=== PATIENT | female | born 1945 ===

== ENCOUNTER 2016-09-28 17:59 | Inpatient (IN) | payer MEDICARE ==
[~2016-09-28] VITALS: Ht 157.5 cm; Wt 50.1 kg
[2016-09-28 19:01] LABS: BASOPHILS 0.3 % (0-2); EOSINOPHILS 1.5 % (0-7); HEMATOCRIT 42.6 % (36.0-48.0); HEMOGLOBIN 14.2 g/dL (12-16); IMMATURE GRANULOCYTES 0.1 % (0-5); LYMPHOCYTES 31.8 % (15-50); MCH 31.7 pg (26.0-34.0); MCHC 33.3 g/dL (31.0-37.0); MCV 95.1 fL (80.0-100.0); MONOCYTES 11.4 % (2-11); NEUTROPHILS 54.9 % (40-80); PLATELET COUNT 287 10x3/uL (130-400); RBC 4.48 10x6/uL (4.00-5.40); RDW 13.1 % (11.5-14.5); WBC 7.8 10x3/uL (4.8-10.8)
[2016-09-28 19:14] LABS: ALBUMIN 3.7 g/dL (3.4-5.0); ALKALINE PHOSPHATASE 70 U/L (46-116); ALT (SGPT) 24 U/L (10-68); BILIRUBIN - TOTAL 0.27 mg/dL (0.2-1.3); CALC OSMOLALITY 279 mosm/kg (275-300); CALCIUM 9.7 mg/dL (8.5-10.1); CARBON DIOXIDE 25.7 mmol/L (21.0-32.0); CHLORIDE - SERUM 104 mmol/L (98-107); CREATININE - SERUM 0.6 mg/dL (0.6-1.3); GLUCOSE 114 mg/dL (74-106); POTASSIUM - SERUM 4.7 mmol/L (3.5-5.1); PROTEIN - SERUM 7.4 g/dL (6.4-8.2); SODIUM 138 mmol/L (136-145); UREA NITROGEN 20 mg/dL (7-18); eGFR NON AFRICAN AMERICAN > 90 mL/min (90-120)
[2016-09-28 19:21] LABS: APPEARANCE CLEAR (CLEAR); BILIRUBIN NEGATIVE (NEGATIVE); COLOR STRAW (YELLOW); GLUCOSE NEGATIVE (NEGATIVE); KETONE NEGATIVE (NEGATIVE); LEUKOCYTE ESTERASE NEGATIVE (NEGATIVE); NITRITE NEGATIVE (NEGATIVE); PROTEIN NEGATIVE (NEGATIVE); RED CELLS - URINE OCC /hpf (0-5); SPECIFIC GRAVITY 1.015 (1.005-1.020); UROBILINOGEN NORMAL (NORMAL); WHITE CELLS - URINE 0-5 /hpf (0-5)
[2016-09-28 19:22] LABS: BACTERIA FEW /hpf (NONE SEEN); EPITHELIAL CELLS OCC /hpf (0-5)
[2016-09-28 19:25] LABS: UDS - AMPHET NEGATIVE QUAL (NEGATIVE); UDS - BARB NEGATIVE QUAL (NEGATIVE); UDS - BENZO NEGATIVE QUAL (NEGATIVE); UDS - COCAINE NEGATIVE QUAL (NEGATIVE); UDS - METH NEGATIVE QUAL (NEGATIVE); UDS - OPIATE NEGATIVE QUAL (NEGATIVE); UDS - PCP NEGATIVE QUAL (NEGATIVE); UDS - THC NEGATIVE QUAL (NEGATIVE)
[2016-09-28] MEDS ORDERED: PLAVIX75 MG PO (21:41)
[2016-09-28 22:13] LABS: CHOL - HDL RATIO 3.3 ratio (2.3-4.1); LDL-HDL RATIO 1.9 ratio (1.5-3.5); THYROID STIMULATING HORMONE 3.77 uIU/mL (0.36-3.74)
[2016-09-28 22:48] VITALS: BP 154/69
--- NOTE | 2016-09-29 01:03 | NUR ---
RECIEVED PATIENT AT 2100 FROM E.D. ARRIVED WITH FAMILY, CODE STATUS IS DNR PER FAMILY, ALERT AND ORIENTED TO SELF AND BEING IN A HOSPITAL, PATIENT WAS TOLD SHE WAS HERE TO GET MEDICATIOS, CONSENTS SIGNED BY DAUGHTER, PHYSICIAN AWARE, MEDICATIONS ENTERED. WILL CONTINUE TO MONITOR.
[2016-09-29 03:03] VITALS: BP 142/68; BMI 19.2
--- NOTE | 2016-09-29 07:30 | NUR ---
B) PATIENT AWAKENED IN A FOUL MOOD, SHE IS CURSING. WHEN STAFF TOLD HER TO FOLLOW THEM TO THE DINING ROOM SHE SAID "REMY MANN, MOTHER FU--ER!" PATIENT IS RUDE AND SHE IS SAYING "I'M NOT STAYING HERE, I DON'T KNOW WHY I AM HERE" PATIENT AMBULATES INDEPENDENTLY. I) PROVIDE PRESCRIBED MEDS. R) PATIENT IS COMPLIANT WITH MEDS, SHE IS PARTICIPATING IN SOME GROUPS. P) CONT POC.
[2016-09-29 12:39] LABS: APPEARANCE HAZY (CLEAR); BILIRUBIN NEGATIVE (NEGATIVE); COLOR YELLOW (YELLOW); GLUCOSE NEGATIVE (NEGATIVE); KETONE NEGATIVE (NEGATIVE); LEUKOCYTE ESTERASE 2+ (NEGATIVE); NITRITE NEGATIVE (NEGATIVE); PROTEIN NEGATIVE (NEGATIVE); UROBILINOGEN NORMAL (NORMAL)
[2016-09-29 12:40] LABS: BACTERIA FEW /hpf (NONE SEEN); EPITHELIAL CELLS 0-5 /hpf (0-5); MUCUS <1+ /lpf (NONE SEEN); RED CELLS - URINE RARE /hpf (0-5)
[2016-09-29 15:09] VITALS: BP 152/61
[2016-09-29 19:00] VITALS: BP 117/73
--- NOTE | 2016-09-29 20:42 | NUR ---
ORIENTED TO PERSON, PLACE, AND TIME. PT DENIES SI AND STATED "THEY LIED TO ME". EDUCATED PT ON WHAT WAS REPORTED AND SHE SAID, "AND SO WHAT". PT THINKS THAT SHE HAS BEEN IN THE HOSPITAL FOR 5 DAYS WHEN REORIENTED PT CONTINUED TO BE AGITATED. PT DENIES DEPRESSION BUT DID SAY THAT SHE WAS ALWAYS ANXIOUS AND WORRIED. FALL PRECAUTIONS MAINTAINED. WILL CONTINUE TO MONITOR AND CONTINUE WITH PLAN OF CARE.
[2016-09-30 06:11] LABS: VITAMIN D 25 HYDROXY 22.1 ng/mL (30.0-100.0)
[2016-09-30 07:20] LABS: FOLATE (FOLIC ACID) - SERUM 9.3 ng/mL (>3.0); RAPID PLASMA REAGIN Non Reactive (Non Reactive)
[2016-09-30 10:42] VITALS: BP 124/94
--- NOTE | 2016-09-30 13:33 | NUR ---
B) PATIENT IS AWAKE AND ALERT, SHE IS ORIENTED TO PERSON, SHE IS INTERACTIVE WITH STAFF AND PEERS AND SOCIALIZING. SHE AMBULATES INDEPENDENTLY. I) PROVIDE PRESCRIBED MEDS. R) PATIENT IS COMPLIANT WITH MEDS. P) CONTINUE POC.
[2016-09-30 19:30] VITALS: BP 120/49
--- NOTE | 2016-10-01 04:07 | NUR ---
B) RECEIVED IN DAYROOM SITTING IN CHAIR. AWAKE, ALERT AND ORIENTED TO PERSON. SOCIALIZES WITH STAFF AND PEERS. I) ADMINISTER PRESCRIBED MEDICATIONS. VSS. R) SHE IS COMPLIANT WITH TAKING MEDICATIONS. REORIENT AND REDIRECT NEEDED. P) WILL CONTINUE CURRENT PLAN OF CARE AND MONITOR FOR CHANGES.
[2016-10-01 07:00] VITALS: BP 157/85
[2016-10-01 19:30] VITALS: BP 107/55
--- NOTE | 2016-10-01 20:29 | NUR ---
PT RECEIVED IN CHAIR BY NURSE STATION. PT ALERT AND ORIENTED TO PERSON AND PLACE. PT DENIES PAIN. NO HALLUCIANTIONS OR DELUSIONS NOTED OR REPORTED. PT DENIES SI. CONTRACTS FOR SAFETY. PT IS COOPERATIVE WITH STAFF AND IS COMPLIANT WITH MEDS AND CARE. PT IS REDIRECTED NEEDED. SAFETY MEASURES ARE IMPLEMENTED. WILL CONTINUE TO MONITOR- CONTINUE WITH PLAN OF CARE.
--- NOTE | 2016-10-01 20:35 | NUR ---
RECEIVED IN DAYROOM. WALKING ABOUT ROOM. SOCIALIZING AT TIMES. FOUND A SET OF KEYS ON HER PERSON. PUT IN STORAGE. CALM AND COOPERATIVE WITH CARE AND ASSESSMENTS. DENIES THOUGHTS OF SELF HARM. RESTING IN CHAIR QUIETLY. CONTINUE PLAN OF CARE
[2016-10-02 10:13] VITALS: BP 157/51
[2016-10-02 15:35] VITALS: BMI 20.2
--- NOTE | 2016-10-02 15:37 | NUR ---
ORIENTED TO PERSON ONLY. REDIRECTED NEEDED. NO AGGRESSION. DENIES SI. SOCIAL WITH STAFF AND OTHER PTS. FALL PRECAUTIONS MAINTAINED. MEDICATIONS GIVEN ORDERD. WILL CONTINUE TO MONITOR AND CONTINUE WITH PLAN OF CARE.
[2016-10-02 19:30] VITALS: BP 139/53
--- NOTE | 2016-10-02 19:52 | NUR ---
RECEIVED IN DAYROOM. SITTING IN A CHAIR WITH PEERS BY HER SIDE. SOCIAL WITH STAFF AT TIMES. CALM AND COOPERATIVE WITH CARE AND ASSESSMENTS. DENIES THOUGHTS OF SELF HARM. ENCOURAGE TO EXPRESS NEEDS. CONTINUES TO SIT QUIETLY IN CHAIR. CONTINUE PLAN OF CARE
[2016-10-03 09:57] VITALS: BP 125/66
--- NOTE | 2016-10-03 13:44 | NUR ---
Alert and oreinted times three, smiles and is social with staff, states no depression. Sits quietly in chair reading book. No suicidial ideations. Safety maintained. Participates in groups. Continue plan of care.
--- NOTE | 2016-10-03 19:56 | NUR ---
RECEIVED IN DAYROOM. SITTING IN A CHAIR WITH PEERS AT HER SIDE. SOCIAL AT TIMES. CALM AND COOPERATIVE WITH CARE AND ASSESSMENTS. DENIES THOUGHTS OF SELF HARM. ENCOURAGE TO EXPRESS NEEDS. CONTINUES TO SIT QUEITLY. CONTINUE PLAN OF CARE
--- NOTE | 2016-10-04 11:29 | NUR ---
ORIENTED TO PERSON AND PLACE. PT CONTINUES TO BE ANXIOUS. NO AGGRESSION NOTED. DENIES SI. MEDICATIONS GIVEN ORDERED. COPING SKILLS DISCUSSED AND PT VERBALIZED UNDERSTANDING. FALL PRECAUTIONS MAINTAINED. WILL CONTINUE TO MONITOR AND CONTINUE WITH PLAN OF CARE.
[2016-10-04 11:34] VITALS: BP 139/57
[2016-10-04 19:30] VITALS: BP 121/51
--- NOTE | 2016-10-04 20:30 | NUR ---
RECEIVED IN DAYROOM SITTING IN RECLINER. ORIENTED X 3, CALM AND COOPERATIVE WITH ASSESSMENT. VSS. DENIES ANY SI AT THIS TIME. AMBULATES INDEPENDENTLY. ADMINISTER PRESCRIBED MEDS. COMPLIANT WITH TAKING MEDS. CONTINUE PLAN OF CARE.
--- NOTE | 2016-10-05 11:55 | NUR ---
ORIENTED X 3. PT GETS CONFUSED AT TIMES BUT IS EASILY REDIRECTED. NO AGGRESSION. DENIES SI. SOCIAL WITH OTHER PTS AND STAFF. MEDICATIONS GIVEN ORDERED. FALL PRECAUTIONS MAINTAINED. WILL CONTINUE TO MONITOR AND CONTINUE WITH PLAN OF CARE.
[2016-10-05 13:49] VITALS: Ht 157.5 cm; Wt 50.1 kg
--- NOTE | 2016-10-05 14:37 | NUR ---
Nutrition Follow Up: Pt is eating 28% meal avg on a regular [facility] soft diet. Wt stable. No BM since admit. Meds and labs reviewed. Rec continue current diet. Will continue to provide selective menus and honor food preferences. Rec consider an appetite stimulant. RD following.
--- NOTE | 2016-10-05 20:12 | NUR ---
RECEIVED PT SITTING IN DAY ROOM, PT WATCHING TV, ADM 2100 MEDS PO PER MD ORDERS, PT VERY COOPERATIVE IN TAKING MEDS, CONTINUE PLAN OF CARE
[2016-10-05 21:53] VITALS: BP 135/53
[2016-10-06 07:59] VITALS: BP 143/71
--- NOTE | 2016-10-06 08:30 | NUR ---
AWAKE AND ORIENTED X 3. CALM AND COOPERATIVEVE WITH ASSESSMENT. NO AGGRESSION NOTED. DENIES SI. SHE IS EASY TO REDIRECT. ADMINISTERED MEDICATIONS. COMPLIANT WITHJ TAKING MEDS. FALL PRECAUTIONS MAINTAINED. WILL CONTINUE TO MONITOR FOR SAFETY AND CHANGES. WILL CONTINUE PLAN OF CARE.
--- NOTE | 2016-10-06 17:58 | NUR ---
RECEIVED IN DINING AREA. SITTING AT TABLE WITH PEERS AT DINER TIME. CALM AND COOPERATIVE WITH CARE AND ASSESSMENTS. DENIES SELF HARM. ENCOURAGE TO EXPRESS NEEDS. CONTINUES TO SIT AT DINING ROOM TABLE. CONTINUE PLAN OF CARE
[2016-10-06 19:30] VITALS: BP 110/86
--- NOTE | 2016-10-07 08:04 | NUR ---
INTRODUCED MYSELF TO PT PRIMARY RN FOR TODAYS SHIFT. PT IS IN PLEASANT MOOD. ALERT AND ORIENTED GETTING DRESSED INDEPENDENTLY IN HER ROOM AND DENIES ANY CURRENT PAIN OR NEEDS. WILL CTM.
--- NOTE | 2016-10-07 08:49 | NUR ---
PT SITING UP IN DAYROOM EATING HER BREAKFAST. SWALLOWED ALL PILLS WITHOUT ANY DIFFICULTIES AND WAS COOPERATIVE AND COMPLIANT WITH THEM ALL. PT ALSO REC'D PRN HEMMORRHOID CREAM FOR PAIN AROUND HER RECTUM C/O HEMMORRHOIDS. PT VOICED THANKS AND DENIES ANY CURRENT NEEDS AT THIS TIME. WILL CTM.
[2016-10-07 09:57] VITALS: BP 147/70
--- NOTE | 2016-10-07 11:07 | NUR ---
PT SITTING UP IN CHAIR IN DAYROOM READING A BOOK. PT DENIES ANY CURRENT PAIN OR NEEDS. WILL CTM.
[2016-10-07 19:30] VITALS: BP 134/45
--- NOTE | 2016-10-08 00:49 | NUR ---
B) Recieved patient in the day room alert and oriented X 3, calm and cooperative with care and assessment, I) Administered perscribed medications, monitored for safety, R) Medication compliant, resting quietly now in bed, P) Continue plan of care.
[2016-10-08 07:00] VITALS: BP 148/61
--- NOTE | 2016-10-08 10:00 | NUR ---
B) SITTING QUIETLY IN DAYROOM WATCHING TV. CALM AND COOPERATIVE WITH ASSESSMENT. I) ADMINISTER PRESCRIBED MEDICATIONS, VSS. DENIES SI. R) MEDICATION COMPLIANT. AMBULATES INMDEPENDENTLY. MONITOR FOR SAFETY AND FALLS. P) CONTINUE PLAN OD CARE.
--- NOTE | 2016-10-08 19:54 | NUR ---
received in dayroom. sitting in chair. socializing at times. DENIES THOUGHTS OF SELF HARM. CALM AND COOPERATIVE WITH CARE AND ASSESSMENTS. ENCOURAGE TO EXPRESS NEEDS. SOCIALIZING WITH STAFF AND PEERS. CONTINUE PLAN OF CARE
[2016-10-08 21:39] VITALS: BP 110/80
[2016-10-09 07:00] VITALS: BP 143/69
--- NOTE | 2016-10-09 10:23 | NUR ---
ORIENTED X 3. EDUCATED PT ON REASON FOR ADMIT TO UNIT. DENIES SI. PT IS PLEASANT AND COOPERATIVE WITH CARE. MEDICATIONS GIVEN ORDERED. FALL PRECAUTIONS MAINTAINED. WILL CONTINUE TO MONITOR AND CONTINUE WITH PLAN OF CARE.
[2016-10-09] MEDS ORDERED: VITAMIN D5000 UNIT PO (13:39)
[2016-10-09] MEDS ORDERED: EFFEXOR50 MG PO (13:39)
[2016-10-09] MEDS ORDERED: SENOKOT-S TABLE1 TAB PO (13:39)
--- NOTE | 2016-10-09 14:56 | NUR ---
UPDATED DAUGHTER ON PT'S SLUMS TESTING RESULTS. DISCUSSED DISCHARGE PLANS. DAUGHTER STATED THAT SHE COULD NOT AFFORD ANY HELP AT HOME OR TO PAY FOR ANY PLACEMENT.
[2016-10-09 21:05] VITALS: BP 131/98
--- NOTE | 2016-10-09 22:41 | NUR ---
RECEIVED IN DAYROOM. SITTING IN A CHAIR SOCIALIZING WITH PEERS. CALM AND COOPERATIVE WITH CARE AND ASSESSMENTS. DENIES THOUGHTS OF SELF HARM. RESTING IN BED EYES CLOSED AT THIS TIME. CONTINUE PLAN OF CARE
[2016-10-10 09:59] VITALS: BP 157/75
--- NOTE | 2016-10-10 10:36 | NUR ---
BARBARA SPOKE WITH PT'S DTR, CLAY, TO DISCUSS DISCHARGE PLANNING. PT'S DTR STATED SHE IS NOT ABLE TO GO HOME DUE TO HER BEHAVIORS. HOWEVER, PT IS ORIENTED X4 AND WANTS TO GO TO THE HOME ENVIRONMENT. CLAY HAS CONTACTED [facility]. BARBARA SENT PAPERWORK TO YADIRA AT [facility]. YADIRA AT [facility] STATED IT IS THE DTR'S RESPONSIBILITY TO FILL OUT APPLICATION FOR [employer] MEDICAID TO GO TO THE ASSISTED LIVING FACILITY. HOWEVER, PT WANTS TO GO BACK TO THE HOME ENVIRONMENT AND HAS TESTED COMPETENT. CLAY DOES NOT HAVE POA PAPERWORK AND STATED PT HAS LOST HER ORIGINAL COPY. SW WILL DO A REFERRAL TO HOME HEALTH IF PT DISCHARGES TO THE HOME ENVIRONMENT. CLAY STATED SHE DOES NOT HAVE MONEY TO PAY FOR SITTERS IN THE HOME ENVIRONMENT. BARBARA EDUCATED ON THE COGNITIVE TESTING RESULTS ON PT. CLAY VERBALIZED UNDERSTANDING AND STATED SHE DROPPED OFF MORE TEST FROM [facility] FOR THE MD TO REVIEW TO SEE IF THAT MAKES A DIFFERENCE IN PT BEING ALLOWED TO GO HOME.
--- NOTE | 2016-10-10 10:45 | NUR ---
ALERT AND ORIENTED X3. CALM AND COOPERATIVE WITH ASSESSMENT. DENIES SI, BUT STILL COMPLAINING OF HER HEMORRHOIDS. SHE SAYS HER CREAM AT HOME WORKS BETTER THAN OURS. MEDICATIONS GIVEN PRESCRIBED. MONITOR FOR SAFETY AND FALL PRECAUTIONS. CONTINUE PLAN OF CARE.
--- NOTE | 2016-10-10 20:35 | NUR ---
RECEIVED IN HALLWAY. WALKING ABOUT. SOCIALIZING WITH PEERS. IN GOOD SPIRITS. CALM AND COOPERATIVE WITH CARE AND ASSESSMENTS. DENIES THOUGHTS OF SELF HARM. CONTINUE PLAN OF CARE
[2016-10-11 09:00] VITALS: BP 148/61
--- NOTE | 2016-10-11 11:00 | NUR ---
B) PATIENT IS AWAKE AND ALERT, SHE IS MILDLY COGNITIVELY IMPAIRED, SHE AMBULATES INDEPENDENTLY. SHE IS COMPLIANT WITH [facility], SHE HAS NOT MENTIONED S.I. OR H.I. TODAY. I) PROVIDE PRESCRIBED MEDS. R) PATIENT IS COMPLIANT WITH MEDS. [facility] IS HERE TO PICK HER UP TO TAKE HER TO [facility]IV[facility]. BELONGINGS ACCOUNTED FOR. P) PATIENT D/C'D.
--- NOTE | 2016-10-11 11:18 | NUR ---
REPORT CALLED TO ABDOULAYE AT [facility], HARD COPY OF MEDS AND D/C ORDER SENT WITH DIRECTOR OF CLINICAL TRIALS. FAXED PAPERWORK TO [facility] AND CALLED MEDS TO [facility] AND REQUESTED DELIVERY. [facility] # [phone]. [facility] # [phone].
== END 2016-10-11 11:10 | disposition home or self-care (01) | DRG 881 ==
LOC: D.ER 17:59 → D.PSYCH 21:16
PROVIDERS: Emergency Medicine; ADMIT Psychiatry & Neurology Psychiatry
DX: F32.9 Major depressive disorder, single episode, unspecified (principal); F01.51 Vascular dementia, unspecified severity, with behavioral disturbance; Z86.73 Personal history of transient ischemic attack (TIA), and cerebral infarction without residual deficits; F41.9 Anxiety disorder, unspecified; M19.90 Unspecified osteoarthritis, unspecified site; I65.22 Occlusion and stenosis of left carotid artery; K59.00 Constipation, unspecified; K64.9 Unspecified hemorrhoids